=== PATIENT | female | born 1990 | race Caucasian/White ===

== ENCOUNTER 2017-08-19 01:06 | Emergency (ER) | payer OTHER ==
[2017-08-19 01:46] VITALS: BP 143/92; PULSE 64; RESP 18; TEMP 97.9; O2SAT 100
--- NOTE | 2017-08-19 01:52 | ED PDOC ---
Upper Extremity Pain/Injury Chief Complaint (Provider): Shoulder pain History Per: Patient History/Exam Limitations: no limitations Onset/Duration Of Symptoms: Hrs Current Symptoms Are (Timing): Still Present Severity: Severe Exacerbating Factor(s): Nothing Additional History Per: Patient Additional Complaint(s): 26 y/o F presents with c/o L/shoulder pain that started 2-3 hours ago while she was sitting on her living room. Patient states pain started suddenly, is constant, doesn't radiate, doesn't improves or worsen with any particular situation and is not associated with any other symptoms. Denies hx of trauma or similar pain in the past. Denies domestic violence. Patient lives with and daughter. <Jeremiah Diaz - Last Filed: 08/19/17 03:15> <Ariana Amato - Last Filed: 08/20/17 12:55> Time Seen by Provider: 08/19/17 01:24 Chief Complaint (Nursing): Upper Extremity Problem/Injury Supervising Attending Note - Supervising Attending Note The Documented history was done by the: Physician Syrup Mixer, Attending Physician The documented physical exam was done by the: Physician Syrup Mixer, Attending Physician The documented procedures were done by the: Physician Syrup Mixer, Attending Physician - Attestation: I have personally seen and examined this patient.: Yes I have fully participated in the care of the patient.: Yes I have reviewed all pertinent clinical information: Yes <Ariana Amato - Last Filed: 08/20/17 12:55> Past Medical History Reviewed: Vital Signs Vital Signs: Last Vital Signs Temp 97.9 F 08/19/17 01:43 Pulse 64 08/19/17 01:43 Resp 08/19/17 01:43 BP 143/92 H 08/19/17 01:43 Pulse Ox 100 08/19/17 01:43 - Medical History PMH: No Chronic Diseases - Surgical History Surgical History: Cholecystectomy (2009) - Family History Family History: States: Unknown Family Hx <Jeremiah Diaz - Last Filed: 08/19/17 03:15> Vital Signs: Last Vital Signs Temp 97.9 F 08/19/17 01:43 Pulse 64 08/19/17 01:43 Resp 08/19/17 01:43 BP 143/92 H 08/19/17 01:43 Pulse Ox 100 08/19/17 03:18 <Ariana Amato Saniya - Last Filed: 08/20/17 12:55> - Home Medications Home Medications: Ambulatory Orders Medication Instructions Recorded Cyclobenzaprine HCl [Flexeril] 10 mg PO BID PRN #12 tab 10/26/14 Naproxen [Naprosyn] 500 mg PO Q12H #20 tab 10/29/14 Oxycodone HCl/Acetaminophen 1 tab PO Q8H #10 tab 10/29/14 [Percocet 325 mg-5 mg] Ibuprofen [Motrin] 600 mg PO TID PRN #15 tab 08/19/17 - Allergies Allergies/Adverse Reactions: Allergies Allergy/AdvReac Type Severity Reaction Status Date / Time No Known Allergies Allergy Verified 10/26/14 19:42 Review of Systems ROS Statement: Except As Marked, All Systems Reviewed And Found Negative Musculoskeletal: Positive for: Shoulder Pain <Jeremiah Diaz - Last Filed: 08/19/17 03:15> Physical Exam - Physical Exam Appears: Positive for: In Acute Distress (Crying in pain) Skin: Positive for: Normal Color, Warm Eye Exam: Positive for: PERRL Neck: Negative for: Normal (tender L/trapezious muscle) Cardiovascular/Chest: Positive for: Regular Rate, Rhythm. Negative for: Edema, Gallop, Murmur Respiratory: Positive for: Normal Breath Sounds. Negative for: Decreased Breath Sounds, Crackles, Rales, Stridor, Wheezing, Respiratory Distress Gastrointestinal/Abdominal: Positive for: Soft. Negative for: Tenderness, Distended, Rebound Back: Positive for: Muscle Spasm (Left trapezious) Extremity: Negative for: Pedal Edema, Deformity, Swelling Neurologic/Psych: Positive for: Alert, Oriented. Negative for: Motor/Sensory Deficits <Jeremiah Diaz - Last Filed: 08/19/17 03:15> - ECG O2 Sat by Pulse Oximetry: 100 - Progress ED Course And Treament: Pain resolved after meds CXR and Shoulder XRay neg for Fx or dislocation awaiting official report <Jeremiah Diaz - Last Filed: 08/19/17 03:15> Medical Decision Making Medical Decision Makin26 y/o F presents with acute L/shoulder pain Denies trauma R/O Fx or Dislocation CXR and L/shoulder Xray Toradol and Flexeril for pain <Jeremiah Diaz - Last Filed: 08/19/17 03:15> Disposition - Patient ED Disposition Is Patient to be Admitted: No - Disposition Disposition: Routine/Home Disposition Time: 03:17 <Jeremiah Diaz - Last Filed: 08/19/17 03:15> <Ariana Amato - Last Filed: 08/20/17 12:55> - Clinical Impression Clinical Impression: Shoulder pain, Muscle spasm of back - Disposition Referrals: [facility] [Outside] Condition: GOOD Additional Instructions: Take your medications. Follow up with your PCP in 2-3 days. Prescriptions: Ibuprofen [Motrin] 600 mg PO TID PRN #15 tab PRN Reason: Pain, Moderate (4-7) Instructions: Muscle Spasms (DC), Shoulder Pain (DC)
--- NOTE | 2017-08-19 09:20 | RAD ---
HISTORY: L/shoulder pain COMPARISON: No prior. FINDINGS: LUNGS: No active pulmonary disease. PLEURA: No significant pleural effusion identified, no pneumothorax apparent. CARDIOVASCULAR: Normal. OSSEOUS STRUCTURES: No significant abnormalities. VISUALIZED UPPER ABDOMEN: Normal. OTHER FINDINGS: None. IMPRESSION: No active disease.
--- NOTE | 2017-08-19 09:21 | RAD ---
PROCEDURE: Radiographs of the Left Shoulder HISTORY: L/shoulder pain COMPARISON: No prior. FINDINGS: BONES: No acute fracture. JOINTS: Unremarkable. SOFT TISSUES: Normal. OTHER FINDINGS: None. IMPRESSION: No demonstrated fracture or dislocation.
== END 2017-08-19 03:55 | disposition home or self-care (01) ==
LOC: H.ER 01:06
DX: M25.512 Pain in left shoulder (principal); M62.830 Muscle spasm of back
CPT/HCPCS: 71045; 73030; 81025; 96374; 99282; J1885